=== PATIENT | female | born 1975 | race Caucasian/White ===

== ENCOUNTER 2021-01-29 15:18 | Emergency (ER) | payer MEDICAID ==
[~2021-01-29 15:18] MED LIST: IBUP-1984 PO; NO HOME MEDS
[2021-01-29 15:33] VITALS: BP_SYST 122
[2021-01-29 17:46] LABS: ALANINE AMINOTRANSFERASE 44 U/L (12-78); ALBUMIN 3.2 G/DL (3.4-5.0); ALBUMIN/GLOBULIN RATIO 0.8 (1.1-1.5); ALKALINE PHOSPHATASE 80 IU/L (46-116); ANION GAP 11 (8-16); ASPARTATE AMINO TRANSFERASE 32 U/L (10-37); BILIRUBIN,TOTAL 0.2 MG/DL (0.1-1.0); BLOOD UREA NITROGEN 11 MG/DL (7-18); BUN/CREATININE RATIO 16.7 (6.6-38.0); CALCIUM 8.6 MG/DL (8.5-10.1); CHLORIDE 111 MMOL/L (99-107); CREATININE 0.66 MG/DL (0.40-0.90); GLUCOSE 107 MG/DL (70-104); SODIUM 143 MMOL/L (135-145); TOTAL CARBON DIOXIDE 20.7 MMOL/L (24-32); TOTAL PROTEIN 7.1 G/DL (6.4-8.2); eGFR > 90 ML/MIN
[2021-01-29 17:50] LABS: POTASSIUM 3.8 MMOL/L (3.5-5.1)
== END 2021-01-29 20:56 | disposition left against medical advice (07) ==
LOC: ER 15:19
DX: R06.02 Shortness of breath (principal); Z53.21 Procedure and treatment not carried out due to patient leaving prior to being seen by health care provider
CPT/HCPCS: 36415; 80053; 93005

== ENCOUNTER 2024-11-27 18:16 | Emergency (ER) | payer MEDICAID ==
[~2024-11-27] VITALS: Ht 162.6 cm; Wt 96.4 kg
[2024-11-27 18:22] VITALS: BP 161/78; PULSE 66; RESP 16; O2SAT 100
--- NOTE | 2024-11-27 19:57 | Physician Documentation ---
History of Present Illness ~ Chief Complaint: Head Pain Stated Complaint: HEAD PAIN Time Seen by MD: 19:34 OK to notify your PCP?: Yes Primary Medical Doctor: [facility] HPI This is a 49-year-old female who presents with a proximally three weeks of posterior neck and occipital pain which she has seen her primary care provider for and is awaiting an MRI appointment. Patient reports that her headache was bad today so she came to the emergency department however prior to coming to the emergency department she did take some Tylenol, patient reports that now she is in the department the Tylenol appears to be working and she feels the pain is manageable and is ready to go home. Patient reports no other acute symptoms or concerns. Tetanus within 5 years?: Yes Medication Reconciliation Allergies: Coded Allergies: No Known Allergies (Unverified , 10/09/11) Scheduled Ibuprofen* (Motrin*), 400 MG PO Q6H Miscellaneous Medications Home Med List (No Home Medications), (Reported) Past Medical History Past Medical History: Hepatitis C Past Surgical History: tubal ligation, other Smoking Status: Never smoker Alcohol Use: None Drug Use: none Lives In: Home Review of Systems ROS Posterior head and neck pain as stated above in the HPI, otherwise all systems are reviewed and negative. Physical Exam Vital Signs: Temperature: 98.6, Source: Oral, Heart Rate: 66, Respiratory Rate: 16, BP: 161/78, Pulse Oximetry: 100, Weight: 96.400 Oxygen Flow Rate: 0 Physical Exam VITALS: Reviewed and as above. GENERAL: Alert, nontoxic appearing, no apparent distress. RESPIRATORY: No increased work of breathing, no respiratory distress, speaking in full clear sentences Progress Results/Orders Results/Orders Vital Signs 11/27/24 11/27/24 18:22 20:06 Temp 98.6 98.6 Pulse 66 Resp 16 B/P (MAP) 161/78 Pulse Ox 100 O2 Flow Rate 0 Medical Decision Making Findings This 49-year-old female presented with posterior head and neck pain. On history and physical patient reported she is feeling better after taking Tylenol, patient reports that she would like to go home, it is reassuring patient has follow up with primary care provider for this neck pain and patient is reporting no concerning symptoms including no fever, no new weakness or numbness, no nuchal rigidity, and is reporting pain is adequately controlled with [id number] medications. Patient is appropriate for outpatient follow up. Differential Dx:Considerations: Include: Closed head injury, Skull facture, Fracture, Contusion, Substance abuse disorder, Personality disorder, Other (Meningitis, migraine) Departure Time of Disposition: 19:57 Disposition: 01 HOME / SELF CARE / HOMELESS Impression: Primary Impression: Head pain Qualified Codes: R51.9 - Headache, unspecified Condition: Improved Discharge Instructions: Headache Additional Instructions: Continue to use ibuprofen and or Tylenol as needed for pain as directed by [id number] packaging. Follow up as scheduled with your primary care provider and chiropractor. Please follow up as scheduled for your MRI. Please return to the emergency department for any new or worsening concerning symptoms. Referrals: NO PRIMARY CARE PROVIDER (PCP) Education Educated: Patient Educated regarding: diagnosis, treatment, prognosis, need for follow up Signature Scribe Signature: No scribe Attestation: The note accurately reflects work and decisions made by me.JOSÉ LUIS Morris 11/28/24 02:08 CHANG CAST November 27, 2024 19:57
[2024-11-27 20:06] VITALS: TEMP 98.6
== END 2024-11-27 20:06 | disposition home or self-care (01) ==
LOC: ER 18:17
DX: R51.9 Headache, unspecified (principal); Z98.51 Tubal ligation status; Z79.899 Other long term (current) drug therapy
CPT/HCPCS: 99282

== ENCOUNTER 2025-05-05 16:06 | Outpatient (CLI) | payer MEDICAID ==
--- NOTE | 2025-05-06 08:16 | RADIOLOGY REPORT ---
PROCEDURE: MRI cervical spine without contrast. 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 FINDINGS: The alignment of the cervical spine vertebral bodies is preserved. The vertebral body heights are maintained. The intervertebral disc spaces are maintained in height and signal characteristics. The bone marrow signal is homogenous and unremarkable. The cervical spinal cord is normal in signal characteristics and caliber. Posterior fossa structures are unremarkable. No cerebellar tonsillar herniation. Paraspinal muscles are unremarkable. At the C2-C3 level, there is no evidence of central spinal canal stenosis. Mild left neural foraminal stenosis is present. The right neural foramina is patent. At the C3-C4 level, there is evidence of central spinal canal stenosis. There is mild left neural foraminal stenosis. The right neural foramina is patent. At the C4-C5 level, there is no evidence of central spinal canal stenosis. The left neural foramina is patent. Mild right neural foraminal stenosis. At the C5-C6 level, there is posterior disc osteophyte complex without significant spinal stenosis. There is severe right and mild left neural foraminal stenosis. At the C6-C7 level, there is posterior disc osteophyte complex. No significant spinal stenosis. There is moderate right neural foraminal stenosis. There is moderate left neural foraminal stenosis. Soft tissue prominence in the left perineural sheaths. At the C7-T1 level, there is no evidence of central spinal canal or neuroforaminal stenosis. Other: None. IMPRESSION: 1. Multilevel degenerative changes in the cervical spine as described at each level above. This includes severe right neural foraminal stenosis at C5-C6 and moderate bilateral neural foraminal stenosis at C6-C7. 2. No significant central spinal stenosis in the cervical spine.
== END 2025-05-05 23:59 | disposition home or self-care (01) ==
LOC: MRI02 16:06
PROVIDERS: ATTEND Anesthesiology
DX: M47.22 Other spondylosis with radiculopathy, cervical region (principal); M48.07 Spinal stenosis, lumbosacral region
CPT/HCPCS: 72141

== ENCOUNTER 2025-06-10 09:40 | Outpatient (CLI) | payer MEDICAID ==
[2025-06-10 11:15] LABS: CHOL/HDL RATIO 3.1 (0.00-4.99); LDL CHOLESTEROL 105 MG/DL (50-100)
== END 2025-06-10 23:59 | disposition home or self-care (01) ==
LOC: LAB 09:40
PROVIDERS: ATTEND Nurse Practitioner Occupational Health
DX: Z11.4 Encounter for screening for human immunodeficiency virus [HIV] (principal); M34.9 Systemic sclerosis, unspecified
CPT/HCPCS: 36415; 80061; 87389